=== PATIENT | male | born 1960 | race Caucasian/White ===

== ENCOUNTER 2017-08-03 23:45 | Inpatient (IN) | payer OTHER ==
[~2017-08-03] VITALS: Ht 172.7 cm; Wt 90.7 kg
[2017-08-03 23:48] VITALS: BP 124/79
--- NOTE | 2017-08-03 23:56 | NUR ---
PT. ELLISON TO ER BED 2
--- NOTE | 2017-08-03 23:58 | NUR ---
Note undone in EDM - 08/04/17 at 0445 by MEDJN 56 Y/O M BIBA W/C/O NEW ONSET OF SUBTERNAL CHEST PAIN WHILE WATCHING TV, 45 MINUTES AGO. PER MEDIC NITRO 0.4 AND 162 ASPIR[address] GIVE ON ROUTE. PT STATES HAS NO MORE PAIN AFTER MEDS GIVEN. PT STATES WAS DIAGNOSED WITH UPER RESPITATORY INFECTION, LAST WEDNESDAY AND PLACED ON ROBITUSSIN, AND AMOXICILLIN. VSS, ER MADE AWARE.
--- NOTE | 2017-08-03 23:58 | NUR ---
56 Y/O M BIBA W/C/O NEW ONSET OF STERNAL CHEST PAIN WHILE WATCHING TV, 45 MINUTES AGO. PER MEDIC NITRO 0.4 AND 162 ASPIRING GIVE ON ROUTE. PT STATES HAS NO MORE PAIN AFTER MEDS GIVEN. PT STATES WAS DIAGNOSED WITH UPER RESPITATORY INFECTION, LAST WEDNESDAY AND PLACED ON ROBITUSSIN, AND AMOXICILLIN. VSS, ER MD MADE AWARE.
[2017-08-04 00:41] LABS: BASOPHILS # (AUTO) 0.2 K/uL (0.00-0.22); BASOPHILS % (AUTO) 2.3 % (0.0-2.0); EOSINOPHILS # (AUTO) 0.4 K/uL (0-0.4); EOSINOPHILS % (AUTO) 4.4 % (0.0-4.0); HEMATOCRIT 45.5 % (36-52); HEMOGLOBIN 14.8 g/dL (12.0-18.0); LYMPHOCYTES # (AUTO) 2.3 K/uL (2.0-11.5); LYMPHOCYTES % (AUTO) 24.8 % (20.5-51.1); MEAN CORPUSCULAR HEMOGLOBIN 28 pg (27-31); MEAN CORPUSCULAR HGB CONC 32 g/dL (33-37); MEAN CORPUSCULAR VOLUME 87 fL (80-94); MONOCYTES # (AUTO) 0.8 K/uL (0.8-1.0); MONOCYTES % (AUTO) 8.3 % (1.7-9.3); NEUTROPHILS # (AUTO) 5.6 K/uL (1.8-7.7); NEUTROPHILS % (AUTO) 60.2 % (42.2-75.2); PLATELET COUNT (AUTO) 218 K/uL (140-450); RED BLOOD CELL COUNT(AUTO) 5.21 MIL/uL (4.20-6.10); RED CELL DISTRIBUTION WIDTH 13.2 % (11.6-13.7); WHITE BLOOD COUNT (AUTO) 9.3 K/uL (4.8-10.8)
[2017-08-04 00:58] LABS: ALBUMIN 3.7 g/dL (3.4-5.0); ANION GAP 14.4 (8-16); CARBON DIOXIDE 27.7 mmol/L (21-32); CREATININE 0.9 mg/dL (0.7-1.3); POTASSIUM 3.1 mmol/L (3.5-5.1); TOTAL BILIRUBIN 0.3 mg/dL (0.0-1.0)
--- NOTE | 2017-08-04 01:53 | NUR ---
PT RESTING IN BED, FAMILY AT BED SIDE. VSS.
--- NOTE | 2017-08-04 03:16 | NUR ---
PT RESTING IN BED, VSS. FAMILY AT BEDSIDE.
[2017-08-04] MEDS: NACL 0.9% 1,000 ML IV SCH ×2 (04:39→20:49)
--- NOTE | 2017-08-04 04:39 | NUR ---
PT UNABLE TO RECALL DOSAGES ON DAILY MEDS.
[2017-08-04] MEDS ORDERED: ACETAMINOPHEN 325 MG TAB PO PRN ×2 (04:40→12:40)
[2017-08-04] MEDS ORDERED: ONDANSETRON 4 MG/2 ML VIAL IVP PRN (04:40)
[2017-08-04] MEDS ORDERED: MORPHINE SULFATE 2 MG/ML SYR IVP PRN (04:40)
[2017-08-04] MEDS ORDERED: MORPHINE SULFATE 4 MG/ML SYR IVP PRN (04:40)
--- NOTE | 2017-08-04 04:40 | NUR ---
PT RESTING I BED, AWAKE, ON MONITOR, NSR,VSS, DENIES ANY CHEST PAIN AT THE MOMENT.
--- NOTE | 2017-08-04 05:50 | NUR ---
PT TRANSFERED TO FLOOR VIA [facility]. ARDIAC MONITOR IN BED, ACCOMPANIED BY RN AND EMT. NO S/S OF DISTRESS NOTED DURING TRANSFER.
--- NOTE | 2017-08-04 05:52 | NUR ---
Patient will be admitted to care of DR RENEE. Admited to TELEMETRY. Will go to room 104 B. Belongings list completed. Report to HAILEY HILLMAN AT BEDSIDE..
[2017-08-04 06:16] VITALS: BP 140/87
--- NOTE | 2017-08-04 06:18 | NUR ---
PT ARRIVED TO THE UNIT VIA GURNEY FROM ER IN STABLE CONDITION. NO S/S OF DISTRESS NOTED. PT IS AAOX4, ON ROOM AIR. IV TO THE R AC 20G, PATENT AND INTACT. SKIN IS INTACT. SKIN IS WARM AND DRY TO TOUCH. COLOR WNL. INITIAL ASSESSMENT COMPLETED. PT ORIENTED TO ROOM, IS AT THE BEDSIDE, ALL SAFETY PRECAUTIONS MET, CALL LIGHT WITHIN REACH, WILL CONTINUE TO MONITOR
--- NOTE | 2017-08-04 07:15 | NUR ---
REPORT GIVEN TO DAY NURSE MANA RN FOR CONTINUITY OF CARE, PT IN STABLE CONDITION. NO S/S OF DISTRESS NOTED
--- NOTE | 2017-08-04 07:16 | NUR ---
REPORT RECEIVED FROM SUPERVISOR PLATING AND POINT ASSEMBLY NURSE AT BEDSIDE FOR CONTINUITY OF CARE. UPDATED BOARD. PATIENT LYING IN BED. NO SIGNS OF DISTRESS OR SOB NOTED. PATIENT HAS DRY COUGH. PATIENT IS AAOX4, ON ROOM AIR. IV TO R AC 20G WITH NS AT 75 ML/HR, ASYMPTOMATIC, INTACT AND PATENT. SKIN INTACT. SAFETY PRECAUTIONS IN PLACE, BED ON LOWEST SETTING, CALL LIGHT WITHIN REACH. WILL CONTINUE TO MONITOR PATIENT.
[2017-08-04 07:35] LABS: PHOSPHORUS 4.1 mg/dL (2.5-4.9)
--- NOTE | 2017-08-04 07:48 | NUR ---
CRITICAL LABS: TROPONIN 0.134. WILL CALL
[2017-08-04 08:00] VITALS: BP 130/76
--- NOTE | 2017-08-04 08:30 | NUR ---
DR CHATTERJEE IS HERE. EXPLAINED SITUATION, HE ORDERED ASPIRIN AND TEXTED DR. Rosy HASSAN FOR CONSULT. PER , DR. ESCOBAR IS ON THE CASE. WILL PAGE DR. ESCOBAR.
[2017-08-04] MEDS: ENOXAPARIN 40 MG/0.4 ML SYR SUBQ SCH (08:34)
--- NOTE | 2017-08-04 08:40 | NUR ---
PAGED DR. SÁNCHEZ... SPINNING BATH PATROLLER FOR DR. ESCOBAR.
[2017-08-04] MEDS ORDERED: ASPIRIN 325 MG TAB PO SCH (08:46)
--- NOTE | 2017-08-04 08:50 | NUR ---
PATIENT HAS BEEN SCREENED AND CATEGORIZED LOW NUTRITION RISK. PATIENT WILL BE SEEN WITHIN 7 DAYS OF ADMISSION. 08/10/[address]
--- NOTE | 2017-08-04 08:53 | NUR ---
ADMINISTERED ASA ORDERED. PATIENT TOLERATED WELL. NO SIGNS OF DISTRESS OR SOB NOTED. PATIENT DENIES PAIN. SAFETY PRECAUTIONS IN PLACE. WILL CONTINUE TO MONITOR PATIENT.
--- NOTE | 2017-08-04 09:56 | NUR ---
SPOKE WITH DONNIE AT [facility]. SHE SAID THE REVIEW GO TO THEM, NOT TO [facility]. FAXED INITIAL REVIEW TO [facility] AT [phone] CM WILL BE YONG [phone].
[2017-08-04] MEDS ORDERED: ATEN100T6 PO (11:53)
[2017-08-04] MEDS ORDERED: HYDR1CAP PO (11:53)
[2017-08-04] MEDS ORDERED: BENA40TA PO (11:53)
[2017-08-04] MEDS ORDERED: AMLO10TA PO (11:53)
[2017-08-04] MEDS ORDERED: AMOX500C25 PO (11:53)
[2017-08-04] MEDS ORDERED: PRAV40TA1 PO (11:53)
[2017-08-04 12:00] VITALS: BP 115/80
[2017-08-04] MEDS ORDERED: TEMAZEPAM 15 MG CAP PO PRN (12:40)
[2017-08-04] MEDS ORDERED: NITROGLYCERIN 0.4 MG TAB SL PRN (12:40)
--- NOTE | 2017-08-04 12:42 | NUR ---
PATIENT LYING IN BED, TALKING WITH . NO SIGNS OF DISTRESS NOTED. PATIENT DENIES PAIN. DR. GARCÍA IN TO TALK TO THE PATIENT. SAFETY PRECAUTIONS IN PLACE. WILL CONTINUE TO MONITOR PATIENTS.
[2017-08-04] MEDS ORDERED: AZITHROMYCIN 500 MG in DEXTROSE 5% 250 ML IV SCH (14:00)
--- NOTE | 2017-08-04 14:00 | NUR ---
ADMINISTERED FIRST DOSE OF IVPB ZITHROMAX ORDERED. PATIENT IS AWAKE, LYING IN BED, SPEAKING TO . DAUGHTER IS NOW IN THE ROOM. NO SIGNS OF DISTRESS OR SOB NOTED. PATIENT DENIES PAIN. SAFETY PRECAUTIONS IN PLACE. CALL LIGHT WITHIN REACH. WILL CONTINUE TO MONITOR PATIENT CLOSELY.
--- NOTE | 2017-08-04 15:15 | NUR ---
PATIENT IS SLEEPING COMFORTABLY. NO SIGNS OF DISTRESS NOTED. ZITHROMAX FINISHED, NO SIGNS AND SYMPTOMS OF REACTION. SAFETY PRECAUTIONS IN PLACE. WILL CONTINUE TO MONITOR PATIENT.
[2017-08-04 16:00] VITALS: BP 122/75
[2017-08-04] MEDS ORDERED: NON-FORMULARY ITEM (Pravastatin Sodium* (Pravachol*) 40 MG) PO SCH (17:00)
--- NOTE | 2017-08-04 17:24 | NUR ---
PT RESTING, WATCHING TV. FAMILY AT BEDSIDE SLEEPING. NO COMPLAINTS. DENIES SOB, CHEST PAIN. IVF STILL INFUSING WELL. WILL CONTINUE TO MONITOR PT.
--- NOTE | 2017-08-04 19:21 | NUR ---
ENDORSED PT TO THE STATEMENT REQUEST CLERK NURSE AT BEDSIDE FOR CONTINUITY OF CARE. PT IS IN STABLE CONDITION.
--- NOTE | 2017-08-04 19:22 | NUR ---
RECEIVED PT FROM LUISANA RN PT IS AAOX4 AMBULATORY IV ON RT AC INFUSING WELL ON TELEMETRY SR DENIES ANY PAIN AT THIS TIME , RELATIVES AT BED SIDE INITIAL ASSESSMENT DONE
[2017-08-04 20:00] VITALS: BP 132/66
--- NOTE | 2017-08-04 20:00 | NUR ---
DR SONYA Gallegos IS HERE AND SEE THE PT
[2017-08-04] MEDS ORDERED: SIMVASTATIN 20 MG TAB PO SCH (21:00)
--- NOTE | 2017-08-04 21:45 | NUR ---
DR HASSAN WAS NOTIFY LAST TROPONIN 0.029 PT DENIES ANY PAIN REMAIN STABLE AT THIS TIME
[2017-08-05] VITALS: BP 124/72
--- NOTE | 2017-08-05 | NUR ---
PT SLEEPING WELL DENIES ANY CHEST PAIN, ON TELEMETRY SB IV ON RT AC INFUSING WELL.
--- NOTE | 2017-08-05 02:52 | NUR ---
NOT DISTRESS NOTED DENIES ANY CHEST PAIN VOIDING WELL
[2017-08-05 04:00] VITALS: BP 120/72
--- NOTE | 2017-08-05 05:05 | NUR ---
SPONGE BATH GIVEN , LINEN CHANGED IV ON RT AC INFUSING WELL ON TELE SB
--- NOTE | 2017-08-05 06:07 | NUR ---
PT AWAKE DENIES ANY PAIN NOT SOB NOTED SB ON TELEMETRY IV ON RT AC INFUSING WELL
--- NOTE | 2017-08-05 07:05 | NUR ---
REPORT RECEIVED FROM ASSISTANT ELEMENTARY TEACHER NURSE AT BEDSIDE FOR CONTINUITY OF CARE. UPDATED BOARD. PATIENT LYING IN BED. NO SIGNS OF DISTRESS OR SOB NOTED. PATIENT IS AAOX4, ON ROOM AIR. IV TO R AC 20G WITH NS AT 75 ML/HR, ASYMPTOMATIC, INTACT AND PATENT. SKIN INTACT. SAFETY PRECAUTIONS IN PLACE, BED ON LOWEST SETTING, CALL LIGHT WITHIN REACH. WILL CONTINUE TO MONITOR PATIENT.
[2017-08-05] MEDS: NACL 0.9% 1,000 ML IV SCH (07:19)
[2017-08-05 07:37] LABS: BASOPHILS # (AUTO) 0.1 K/uL (0.00-0.22); BASOPHILS % (AUTO) 1.6 % (0.0-2.0); EOSINOPHILS # (AUTO) 0.3 K/uL (0-0.4); EOSINOPHILS % (AUTO) 4.3 % (0.0-4.0); HEMATOCRIT 41.1 % (36-52); HEMOGLOBIN 14.2 g/dL (12.0-18.0); LYMPHOCYTES % (AUTO) 27.7 % (20.5-51.1); MEAN CORPUSCULAR HEMOGLOBIN 29 pg (27-31); MEAN CORPUSCULAR HGB CONC 34 g/dL (33-37); MEAN CORPUSCULAR VOLUME 85 fL (80-94); MONOCYTES # (AUTO) 0.6 K/uL (0.8-1.0); MONOCYTES % (AUTO) 7.5 % (1.7-9.3); NEUTROPHILS # (AUTO) 4.4 K/uL (1.8-7.7); NEUTROPHILS % (AUTO) 58.9 % (42.2-75.2); PLATELET COUNT (AUTO) 190 K/uL (140-450); RED BLOOD CELL COUNT(AUTO) 4.84 MIL/uL (4.20-6.10); RED CELL DISTRIBUTION WIDTH 13.1 % (11.6-13.7); WHITE BLOOD COUNT (AUTO) 7.4 K/uL (4.8-10.8)
[2017-08-05 07:46] LABS: ALBUMIN 3.1 g/dL (3.4-5.0); ANION GAP 9.9 (8-16); CARBON DIOXIDE 27.3 mmol/L (21-32); CREATININE 0.8 mg/dL (0.7-1.3); POTASSIUM 3.2 mmol/L (3.5-5.1); TOTAL BILIRUBIN 0.4 mg/dL (0.0-1.0)
[2017-08-05 07:50] LABS: CHOL/HDL RATIO 3.2 (1-4.5)
[2017-08-05 08:00] VITALS: BP 127/93
--- NOTE | 2017-08-05 08:45 | NUR ---
ADMINISTERED MORNING MEDICATIONS. PATIENT TOLERATED THEM WELL. NO SIGNS OF DISTRESS OR SOB NOTED. SAFETY PRECAUTIONS IN PLACE. WILL CONTINUE TO MONITOR PATIENT.
[2017-08-05] MEDS: ENOXAPARIN 40 MG/0.4 ML SYR SUBQ SCH (08:49)
[2017-08-05] MEDS ORDERED: amLODIPine 5 MG TAB PO SCH (09:00)
[2017-08-05] MEDS ORDERED: ATENOLOL 50 MG TAB PO SCH (09:00)
[2017-08-05] MEDS ORDERED: BENAZEPRIL HCL 40 MG PO SCH (09:00)
[2017-08-05] MEDS ORDERED: ASPIRIN 81 MG TAB.CHEW PO SCH (09:00)
[2017-08-05] MEDS ORDERED: LOSARTAN 50 MG TAB PO SCH (09:00)
[2017-08-05] MEDS ORDERED: BENAZEPRIL 20 MG TAB PO SCH (09:00)
[2017-08-05] MEDS ORDERED: [UNRECOGNIZED DRUG - OTHER] PO SCH (09:00)
[2017-08-05 12:00] VITALS: BP 131/87
--- NOTE | 2017-08-05 13:40 | NUR ---
GAVE DISCHARGE INSTRUCTIONS TO PT AND . ANSWERED ALL QUESTIONS. PT HAS AN APPT WITH PCP TOMORROW. REMOVED IV, CANNULA INTACT. NO BLEEDING NOTED. REMOVED ID BAND. REMOVED TELE MONITOR. PT WILL GET DRESSED AND LET US KNOW WHEN HE IS READY TO LEAVE. WILL HAVE WHEELCHAIR READY.
--- NOTE | 2017-08-05 13:46 | NUR ---
Joyce from insurance aware that patient is discharge today. [facility] review faxed to [facility]. at [phone]
--- NOTE | 2017-08-05 14:05 | NUR ---
WALKED PT TO THE LOBBY. PT REFUSED WHEELCHAIR. PT IN STABLE CONDITION WITH ALL PERSONAL BELONGINGS WITH HIM. GETTING THE CAR.
== END 2017-08-05 12:05 | disposition home or self-care (01) | DRG 313 ==
LOC: MED 23:45 → MTU 08-04 04:47
PROVIDERS: ADMIT Hospitalist; ATTEND Hospitalist
DX: R07.89 Other chest pain (principal); I11.9 Hypertensive heart disease without heart failure; E78.5 Hyperlipidemia, unspecified; J20.9 Acute bronchitis, unspecified; Z79.82 Long term (current) use of aspirin
CPT/HCPCS: 36415; 71010; 80053; 83036; 83690; 83735; 83880; 84100; 84484; 85025; 87081; 93005; 99285; J0456; J1650; J7030; J7060; Q0092